=== PATIENT | female | born 1995 | race American Indian/Alaskan Native ===

== ENCOUNTER 2022-01-26 22:29 | Emergency (ER) | payer MEDICAID ==
[2022-01-26 23:20] VITALS: BP 126/78
== END 2022-01-27 11:17 | disposition left against medical advice (07) ==
LOC: ED 22:29
DX: H93.8X9 Other specified disorders of ear, unspecified ear (principal); Z53.21 Procedure and treatment not carried out due to patient leaving prior to being seen by health care provider

== ENCOUNTER 2022-06-26 15:26 | Emergency (ER) | payer MEDICAID ==
[2022-06-26 15:32] VITALS: BP 140/80
== END 2022-06-27 19:46 | disposition left against medical advice (07) ==
LOC: ED 15:26
DX: S61.213A Laceration without foreign body of left middle finger without damage to nail, initial encounter (principal); Z53.21 Procedure and treatment not carried out due to patient leaving prior to being seen by health care provider; X58.XXXA Exposure to other specified factors, initial encounter; Y93.89 Activity, other specified; Y92.89 Other specified places as the place of occurrence of the external cause; Y99.8 Other external cause status